=== PATIENT | male | born 1970 | race Caucasian/White ===

== ENCOUNTER 2017-12-12 09:04 | Outpatient (REF) | payer OTHER, SELFPAY ==
[2017-12-12 13:20] LABS: ALT 60 U/L (12-78); AST 36 U/L (15-37); Albumin 3.6 g/dL (3.4-5.0); Alkaline Phosphatase 64 U/L (46-116); Anion Gap 5.6 mmol/L (3-11); BUN 21 mg/dL (7-18); Bilirubin, Total 0.3 mg/dL (0.2-1.0); CO2 30.4 mmol/L (21.0-32.0); CREATININE 1.17 mg/dL (0.70-1.30); Calcium 8.9 mg/dL (8.5-10.1); Chloride 104 mmol/L (98-107); Cholesterol 186 mg/dL (50-200); Glucose 100 mg/dL (70-100); HDL Cholesterol 36 mg/dL (40-60); LDL CHOLESTEROL 123 mg/dL (<100); Potassium 4.6 mmol/L (3.5-5.1); Sodium 140 mmol/L (136-145); Total Protein 7.3 g/dL (6.4-8.2); Triglyceride 193 mg/dL (30-150)
== END 2017-12-12 09:24 ==
LOC: NCHCN 09:04
PROVIDERS: PCP Nurse Practitioner Family; Visit Provider Nurse Practitioner
DX: E78.5 Hyperlipidemia, unspecified (principal); I25.10 Atherosclerotic heart disease of native coronary artery without angina pectoris; I10 Essential (primary) hypertension
CPT/HCPCS: 80053; 80061; 83721

== ENCOUNTER 2018-12-18 11:10 | Outpatient (REF) | payer OTHER, SELFPAY ==
[2018-12-18 13:31] LABS: ALT 55 U/L (16-63); AST 35 U/L (15-37); Alkaline Phosphatase 63 U/L (46-116); BUN 21 mg/dL (7-18); Bilirubin, Total 0.3 mg/dL (0.2-1.0); CREATININE 1.23 mg/dL (0.70-1.30); Calcium 9.2 mg/dL (8.5-10.1); Calculated LDL 99 mg/dL; Chloride 104 mmol/L (98-107); Cholesterol 160 mg/dL (50-200); Glucose 100 mg/dL (70-100); HDL Cholesterol 38 mg/dL (40-60); Potassium 4.4 mmol/L (3.5-5.1); Sodium 140 mmol/L (136-145); Total Protein 7.9 g/dL (6.4-8.2); Triglyceride 116 mg/dL (30-150)
== END 2018-12-18 11:30 ==
LOC: NCHCN 11:10
PROVIDERS: PCP Nurse Practitioner Family; Visit Provider Nurse Practitioner
DX: I10 Essential (primary) hypertension (principal); I25.10 Atherosclerotic heart disease of native coronary artery without angina pectoris; E78.5 Hyperlipidemia, unspecified
CPT/HCPCS: 80053; 80061

== ENCOUNTER 2019-03-18 11:50 | Emergency (ER) | payer OTHER, SELFPAY ==
[2019-03-18 11:55] VITALS: BP 140/68; PULSE 69; RESP 20; TEMP 36.7; O2SAT 96
[2019-03-18] MEDS: Balanced Salt Solution 15 ML BTL (12:05)
[2019-03-18] MEDS: Tetracaine 0.5% 4 ML BTL (12:05)
[2019-03-18] MEDS: Fluorescein STRIPS 100/BOX 1 MG (12:06)
--- NOTE | 2019-03-18 12:25 | W.ED.GENAD ---
Discharge Plan Disposition Patient Disposition: HOME Condition: Good Discharge Details Chief Complaint: EyeProblem Clinical Impression: Foreign body in eye, Corneal rust ring Primary Care Provider: Sara Azevedo ED Provider: Priscila West Home Meds and New Rx's Prescriptions: Continued aspirin [Adult Aspirin Regimen] 81 mg tablet,delayed release (DR/EC) 81 mg PO DAILY RF: 0 rosuvastatin 20 mg tablet 30 mg PO HS RF: 0 Discharge Instructions Instructions: Erythromycin (Into the eye), Eye Foreign Body (ED) Additional Instructions: Encourage water intake. Please apply the erythromycin ointment to the left eye 5 times daily as instructed by nursing staff. Please call [facility] tomorrow to schedule follow-up appointment as soon as possible. If you develop fever/chills, increased pain, change in your vision, discharge or other new/worsening symptom please seek care urgently once again. Referrals: [facility] [place] [facility] [Outside] Sara Azevedo [Primary Care Provider] - Discharge Data Discharge Date/Time-TO BE ENTERED AT DEPARTURE: 03/18/19 13:45 Medical Decision Making Patient is a pleasant 48-year-old male presenting to complain foreign body in the left eye. 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 However, he does not remember any single inciting incident. He denies any fevers or chills. No change in his vision. States that he has foreign body sensation is been quite irritating since then. Last dose tetanus updated last fall. No discharge from the eye. States he has done this before but does not routinely see an senior budget analyst. On exam, patient is resting comfortably. He does have a visible foreign body over the iris at the 2 o'clock position. anesthetized with tetracaine. Patient did have immediate improvement. This was able to be easily removed with an 18-gauge needle. An understanding of floor seen evaluating the slit-lamp. Rust ring remains. Contact engagement quality consultant physician for [facility], was unable to reach them. Have asked that he f/u with them tomorrow. Information will be faxed to their office and patient will call in the morning. Patient started on erythromycin ointment. He was given return precautions. All of his questions and concerns were addressed and he is in agreement this plan. After patient was discharged, spoke with Dr. Christiansen who will see patient tomorrow to help with rust ring treatment. HPI General Mode of arrival: ambulatory. Date/Time Provider Initiated Documentation: 03/18/19 12:25. Limitations to Documentation: no limitations. Information obtained by: patient and RN notes reviewed. History of Present Illness 48 year old M presents to the emergency department with the chief complaint of FB left eye, described as mild, with intensity rated at 1. Quality is described as other (FB sensation), and is localized to the eyes. Patient reports no radiation. Patient started experiencing this day(s) (3) and it has been constant. No relieving factors improve symptom(s), No exacerbating factors reported . Patient notes no other symptoms.. Patient did receive the following treatments prior to arrival, none Related Data Home Medications Medication Instructions Recorded Confirmed aspirin 81 mg tablet,delayed 81 mg PO DAILY 01/03/19 03/18/19 release rosuvastatin 20 mg tablet 30 mg PO HS tab 01/03/19 03/18/19 Allergies Allergy/AdvReac Type Severity Reaction Status Date / Time No Known Drug Allergies Allergy Verified 03/18/19 11:58 General Stated Complaint: EyeProblem CAN: 4 Review of Systems Constitutional Constitutional: Reports as per HPI, Denies chills, Denies fatigue, Denies fever(s) and Denies headache(s) Eyes Eyes: Reports as per HPI ENT Ears, Nose, Mouth, and Throat: Denies headache(s) Cardiovascular Cardiovascular: Reports as per HPI, Denies chest pain and Denies lightheadedness Respiratory Respiratory: Denies cough Integumentary/Breasts Skin/Breast: Reports as per HPI, Denies rash, Denies skin pain and Denies skin swelling Neurologic Neurologic: Denies headache(s) and Denies radicular pain Endocrine Endocrine: Denies fatigue [facility] Medical History BMI 38.0-38.9,adult (Acute) Coronary artery disease (Chronic) Hyperlipidemia (Acute) Hypertension (Chronic) Skin lesion of face (Acute) Surgical History History of surgical removal of skin lesion (Acute) Left side of face, Status post LASIK surgery (Acute) Right eye Social History Smoking/Tobacco Use Status: Never Alcohol Intake: current Alcohol Intake frequency: holidays/special occasions only Drug use: Never Substance use type: does not use Do you feel safe at home: Yes Do you feel safe in your relationship?: Yes Exam Const General: cooperative, healthy appearing, comfortable, no acute distress, well developed and well groomed Nutritional Appearance: average body habitus and well nourished Orientation: alert, awake and oriented x3 HENMT Head: normal to inspection, normocephalic and atraumatic Ears: hearing grossly normal bilaterally and external ears normal General nose exam: external nose normal and nares normal Face and sinus: normal facial exam and face symmetric Mouth: oral mucosae normal, lip normal and moist mucous membranes Eyes General: appearance normal, both eyes and all related structures Visual Sanchez: normal visual sanchez by confrontation Alignment and Position: alignment normal and position normal Periorbital: periorbital findings normal Eyelids: eyelids normal Cornea: corneas abnormal on the left foreign body metallic and with rust ring present and fluorescein used Pupils: PERRL, normal by confrontation and accommodation normal Eyes/upper lids images: 1. Area of foreign body Resp Effort & Inspection: normal respiratory effort, able to speak in complete sentences and no respiratory distress Skin General skin exam: no rashes or lesions noted Neuro General: alert, awake and oriented x3 Cranial Nerves: CN's II-XI intact bilaterally Cognition: normal cognition Speech: speech normal Gait: normal gait Psych Appearance: grossly normal and well kempt Mental Status: mental status grossly normal Speech and Movement: speech and movement normal Course Vital Signs Vital signs: Vital Signs Temperature 36.7 C 03/18/19 11:55 Pulse 69 03/18/19 11:55 Respiratory Rate 20 03/18/19 11:55 Blood Pressure 140/68 03/18/19 11:55 Pulse Oximetry 96 03/18/19 11:55 Temperature 36.7 C 03/18/19 11:55 Pulse 69 03/18/19 11:55 Respiratory Rate 20 03/18/19 11:55 Respiratory Effort Non-Labored 03/18/19 12:01 Blood Pressure 140/68 03/18/19 11:55 Blood Pressure Position Sitting 02/02/20 11:55 Pulse Oximetry 96 03/18/19 11:55 Oxygen Delivery Method Room Air 03/18/19 11:55 Oxygen Flow Rate 0 03/18/19 11:55 Pain Level 1 03/18/19 11:55
[2019-03-18] MEDS: Erythromycin Ophth Oint 3.5 GM TUBE OS (13:46)
--- NOTE | 2019-03-18 14:27 | NUR.NOTE ---
Referral and visit note faxed to [facility], [phone].Nursing Note:
== END 2019-03-18 13:45 | disposition home or self-care (01) ==
PROVIDERS: Emergency Provider Physician Assistant; PCP Nurse Practitioner Family
DX: T15.02XA Foreign body in cornea, left eye, initial encounter (principal)
CPT/HCPCS: 65222

== ENCOUNTER 2019-12-17 19:36 | Outpatient (REF) | payer OTHER, SELFPAY ==
[2019-12-17 18:59] LABS: ALT 52 U/L (16-63); AST 30 U/L (15-37); Albumin 4.1 g/dL (3.4-5.0); Alkaline Phosphatase 66 U/L (46-116); Anion Gap 5.9 mmol/L (3-11); BUN 18 mg/dL (7-18); Bilirubin, Total 0.4 mg/dL (0.2-1.0); CO2 30.1 mmol/L (21.0-32.0); CREATININE 1.28 mg/dL (0.70-1.30); Calcium 8.9 mg/dL (8.5-10.1); Calculated LDL 98 mg/dL (<100); Chloride 101 mmol/L (98-107); Cholesterol 162 mg/dL (<200); Estimated GFR 59.25 (mL/min/1.73m2); Glucose 95 mg/dL (74-106); HDL Cholesterol 32 mg/dL (40-60); Potassium 4.5 mmol/L (3.5-5.1); Sodium 137 mmol/L (136-145); Triglyceride 161 mg/dL (<150)
== END 2019-12-17 19:56 ==
LOC: NCHCN 19:36
PROVIDERS: PCP Nurse Practitioner Family; Visit Provider Nurse Practitioner
DX: I10 Essential (primary) hypertension (principal); I25.10 Atherosclerotic heart disease of native coronary artery without angina pectoris; E78.5 Hyperlipidemia, unspecified
CPT/HCPCS: 80053; 80061

== ENCOUNTER 2021-01-14 10:31 | Outpatient (REF) | payer OTHER, SELFPAY ==
[2021-01-14 20:58] LABS: ALT 56 U/L (16-63); AST 40 U/L (15-37); Albumin 4.1 g/dL (3.4-5.0); Alkaline Phosphatase 65 U/L (46-116); Anion Gap 10.5 mmol/L (3-11); BUN 22 mg/dL (7-18); Bilirubin, Total 0.3 mg/dL (0.2-1.0); CO2 24.5 mmol/L (21.0-32.0); CREATININE 1.3 mg/dL (0.70-1.30); Calcium 8.9 mg/dL (8.5-10.1); Calculated LDL 109 mg/dL (<100); Chloride 103 mmol/L (98-107); Cholesterol 172 mg/dL (<200); Estimated GFR 57.97 (mL/min/1.73m2); Glucose 93 mg/dL (74-106); HDL Cholesterol 37 mg/dL (40-60); Potassium 4.6 mmol/L (3.5-5.1); Sodium 138 mmol/L (136-145); Total Protein 7.8 g/dL (6.4-8.2); Triglyceride 131 mg/dL (<150)
== END 2021-01-14 10:32 | disposition home or self-care (01) ==
LOC: NCHCN 10:31
PROVIDERS: PCP Nurse Practitioner Family; Visit Provider Nurse Practitioner
DX: I10 Essential (primary) hypertension (principal); E78.5 Hyperlipidemia, unspecified; I25.10 Atherosclerotic heart disease of native coronary artery without angina pectoris
CPT/HCPCS: 80053; 80061

== ENCOUNTER 2021-12-10 15:10 | Outpatient (REF) | payer OTHER, SELFPAY ==
[2021-12-10 14:52] LABS: Abs Immature Grans 0.01 10^3/uL (0.0-0.06); Absolute Basophil Count 0.04 10^3/uL (0.0-0.2); Absolute Eosinophil Count 0.13 10^3/uL (0.0-0.7); Absolute Lymphocyte Count 1.78 10^3/uL (1.2-3.4); Absolute Monocyte Count 0.55 10^3/uL (0.1-0.8); Absolute Neutrophil Count 2.15 10^3/uL (1.2-6.7); Basophils % 0.9; Eosinophils % 2.8; HCT 45.9 % (40.0-50.0); HGB 15.6 g/dL (13.5-17.5); Immature Grans % 0.2; Lymphocytes % 38.2; MCH 31.4 pg (27.0-33.0); MCV 92 fL (80-95); MPV 10.4 fL (8.0-11.0); Monocytes % 11.8; Neutrophils % 46.1; Platelet Count 216 10^3/uL (130-400); RBC 4.97 10^6/uL (4.36-5.78); RDW 11.5 % (11.8-14.1); RDW-SD 38.9 fL; WBC 4.66 10^3/uL (4.4-10.8)
[2021-12-10 15:18] LABS: ALT 43 U/L (16-63); AST 32 U/L (15-37); Albumin 3.8 g/dL (3.4-5.0); Alkaline Phosphatase 59 U/L (46-116); Anion Gap 5.3 mmol/L (3-11); BUN 21 mg/dL (7-18); Bilirubin, Total 0.3 mg/dL (0.2-1.0); CO2 26.7 mmol/L (21.0-32.0); CREATININE 1.1 mg/dL (0.70-1.30); Calculated LDL 154 mg/dL (<100); Chloride 104 mmol/L (98-107); Cholesterol 221 mg/dL (<200); Estimated GFR 80.27 (mL/min/1.73m2); Glucose 94 mg/dL (74-106); HDL Cholesterol 38 mg/dL (40-60); Potassium 4.4 mmol/L (3.5-5.1); Sodium 136 mmol/L (136-145); Total Protein 8.1 g/dL (6.4-8.2); Triglyceride 146 mg/dL (<150)
== END 2021-12-10 15:11 | disposition home or self-care (01) ==
LOC: NCHCN 15:10
PROVIDERS: PCP Nurse Practitioner Family; Visit Provider Nurse Practitioner Family
DX: E78.5 Hyperlipidemia, unspecified (principal); I25.10 Atherosclerotic heart disease of native coronary artery without angina pectoris; N13.0 Hydronephrosis with ureteropelvic junction obstruction; E66.8 Other obesity; I10 Essential (primary) hypertension
CPT/HCPCS: 80053; 80061; 85025

== ENCOUNTER 2022-06-08 16:48 | Outpatient (REF) | payer OTHER, SELFPAY ==
[2022-06-08 16:21] LABS: ALT 52 U/L (16-63); AST 35 U/L (15-37); Albumin 3.8 g/dL (3.4-5.0); Alkaline Phosphatase 58 U/L (46-116); BUN 23 mg/dL (7-18); Bilirubin, Total 0.3 mg/dL (0.2-1.0); CREATININE 1.3 mg/dL (0.70-1.30); Calcium 8.8 mg/dL (8.5-10.1); Calculated LDL 101 mg/dL (<100); Chloride 105 mmol/L (98-107); Cholesterol 161 mg/dL (<200); Estimated GFR 65.69 (mL/min/1.73m2); Glucose 104 mg/dL (74-106); HDL Cholesterol 37 mg/dL (40-60); Potassium 4.7 mmol/L (3.5-5.1); Sodium 138 mmol/L (136-145); Total Protein 8.1 g/dL (6.4-8.2); Triglyceride 116 mg/dL (<150)
[2022-06-10 09:27] LABS: Hepatitis C Ab w Rflx HCV PCR Negative (Negative)
[2022-06-10 09:45] LABS: HIV-1/2 Ag & Ab Screen Negative (Negative)
== END 2022-06-08 16:49 | disposition home or self-care (01) ==
LOC: NCHCN 16:48
PROVIDERS: PCP Nurse Practitioner Family; Visit Provider Nurse Practitioner Family
DX: E78.5 Hyperlipidemia, unspecified (principal); Z11.4 Encounter for screening for human immunodeficiency virus [HIV]; Z11.59 Encounter for screening for other viral diseases
CPT/HCPCS: 80053; 80061; 86803; 87389

== ENCOUNTER 2022-10-01 07:57 | Day surgery (SDC) | payer OTHER, SELFPAY ==
--- NOTE | 2022-09-30 21:24 | W.COLOREPORT ---
Date of service: 10/01/22 Time of Service: 09:49 Colonoscopy Report Date of procedure: 10/01/22 Pre-op diagnosis general: CRC screening/change in bowel habits Post-op diagnosis procedure note: other (polyps) Surgeon: Sunitha Burleson Anesthesia Type: General LMA/ETT Estimated blood loss (mL): 2 Pathology: other Complications: None Disposition: same day Prep: Miralax/Dulcolax Retraction Time: 14 Procedure Description: After informed consent was obtained the patient was taken to the procedure room and placed in a left decubitous position. Monitors were applied and a time out was done. The patients name, date of , procedure, allergies to medications and metal in their body was reviewed. The patient was then sedated. Once sedated and comfortable a rectal exam was done. External exam was normal. Internal exam revealed a normal sphincter tone and no palpable masses. The prostate normal The scope was then introduced and retrofelexed. No internal hemorrhoids were identified. The scope was then advanced to the cecum w/out difficulty. The TI and appendiceal orifice were identified. The prep was BBPS II in all segments for a total of 6. The scope was then slowly retracted over 14 minutes back into the rectum. He had a flat 0.75 cm polyp at 70 cm that is removed removed with a cold biting forcep. He had a second polyp at 30 cm that is a flat 5 mm polyp that was removed with cold biting forcep. All specimen is retrieved and no bleeding was noted. biopsies are taken at 70/50/30 centimeters and rectum. The scope was removed and the patient was woken up and taken back to Same day surgery in stable condition. The patient tolerated the procedure well and there were no immediate complications. Follow up: The patient should follow up for repeat colonoscopy pending pathology results, years unless they develop changes in bowel habits or other new gastrointestinal complaints.
--- NOTE | 2022-09-30 21:25 | PDOC.DSDIS_ITS ---
Date of service: 10/01/22 Time of Service: 09:52 Discharge Plan Disposition Patient Disposition: Home Discharge Details Reason For Visit: colon scope Attending Provider: Suntiha Burleson Primary Care Provider: Sara Azevedo Home Meds and New Rx's Prescriptions: Continued aspirin [Adult Aspirin Regimen] 81 mg tablet,delayed release (DR/EC) 81 mg PO DAILY rosuvastatin 20 mg tablet 20 mg PO HS isosorbide dinitrate 30 mg tablet 30 mg PO DAILY Rx Instructions: allow nitrate-free interval of 12-14 hrs per 24-hr period Discontinued polyethylene glycol 3350 17 gram/dose powder 17 g PO ONCE Qty: 238 0RF Rx Instructions: Take per colonoscopy instructions provided by ordering providers office bisacodyl [Dulcolax (bisacodyl)] 5 mg tablet,delayed release (DR/EC) 5 mg PO ONCE Qty: 4 0RF Rx Instructions: Take per colonoscopy instructions provided by ordering providers office Discharge Instructions Additional Instructions: DSU Colonoscopy Post- Op Instructions Instructions for Everyone who is given Anesthesia: For your safety, please do the following for the next twenty-four (24) hours: *Do Not operate a motor vehicle (car, truck, motorcycle, etc.) *Do Not drink alcoholic beverages or use any recreational drugs for the first 24 hours or while taking pain medications. The medications in your body may have a reaction that can be dangerous. *Do Not make any important decisions or sign any important papers. Findings: polyps x3 No ASA/NSAIDs for 72 hrs Follow up:repeat scope in 5 yrs time My office will send a letter in 2 to 3 weeks time with the results of the biopsies You do have signs of sleep apnea that was noted during procedure. It is highly recommended you follow-up with your primary doctor and have a sleep study done 1. No lifting over 20 pounds or strenuous activity for the first 24 hours after your procedure. After 24 hours there are no restrictions on your activity but you may feel fatigued for a few days. 2. After you arrive home you may have a light meal and return to your normal diet as you can tolerate it without feeling sick to your stomach. 3. You may have a bloated, gaseous feeling in your belly (abdomen) after a colonoscopy. Passing gas and belching will help. Walking or lying down on your left side with your knees flexed may relieve the discomfort. Call the office at [phone] (Office) or [phone] (Hospital) right away if you notice any of the following: a.Vomiting of blood or ?coffee ground stools?. b.Rectal bleeding 1Tbsp, blood clots or continuous bleeding. c.Severe belly (abdominal) pain. d.A hard distended belly (abdomen) and an inability to pass gas. 4. Please don?t expect to have a normal BM (bowel movement) for 2-3 days after your procedure. 5. If there are questions regarding the findings of your procedure, please contact your doctor 6. If you are unable to contact your doctor with a problem, contact the hospital at [phone]. 7. Continue all your regular medications unless directed otherwise. I understand the above instructions and have no questions. Signature of Patient or Adult Escort Name of Responsible Adult Escort Signature of Nurse Date/Time Activity:: see above Diet:: see abve Discharge Orders Discharge Orders: Discharge Order (Routine); Ordered 10/01/22 Ordered By: Sunitha Burleson DS: Diagnosis Discharge Diagnosis (1) BMI 38.0-38.9,adult: (2) Coronary artery disease: (3) Hx of myocardial infarction: (4) Hyperlipidemia: (5) Hypertension: (6) Ischemic heart disease: (7) Screening for malignant neoplasm of colon performed: Status: Acute Asessment and Plan: The patient is seen and examined after their colonoscopy.? The patient has been able to pass gas.? They are not having abdominal pain.? They have been able to tolerate liquids and a snack.? They do not have any nausea or vomiting.? They are not having any chest pain or shortness of breath.They are not having any rectal bleeding. Their vital signs have been stable-see nursing notes. ? We discussed findings during their colonoscopy, and any biopsies that were done/polyps that were removed. The patient will be sent a letter with any biopsy results, and when to repeat the colonoscopy.-see discharge instructions. ? Patient was given explicit instructions to follow-up regarding colonoscopy-refer to discharge instructions.? We reviewed resumption of medications. Patient verbalized understanding and discharged in stable and satisfactory condition- See nursing notes. (8) Adenomatous polyps: Status: Acute
[2022-10-01 08:09] VITALS: BP 152/93; PULSE 62; RESP 17; TEMP 36.4; O2SAT 95
[2022-10-01] MEDS: Lactated Ringers 1,000 ML 80 ML IV (08:28)
--- NOTE | 2022-10-01 08:58 | ANES.PREOP_ITS ---
General Info Date of Service Date Performed: 10/01/22 Height: 5 ft 8 in Weight: 117.4 kg Body Mass Index (BMI): 39.3 Surgical Procedure: Operation Date: 10/01/22 09:05 Proposed Procedure Side Surgeon p Colonoscopy Sunitha Burleson DO Actual Procedure Side Surgeon p Colonoscopy Not Applicable Sunitha Burleson DO Pre-Op Diagnosis Post-Op Diagnosis SCREENING SCREENING Meds Allergies and Home Medications Allergies Allergy/AdvReac Type Severity Reaction Status Date / Time No Known Drug Allergies Allergy Verified 10/01/22 08:17 Home Medication Medication Instructions Recorded aspirin 81 mg tablet,delayed 81 mg PO DAILY 01/03/19 release (Adult Aspirin Regimen) isosorbide dinitrate 30 mg tablet 30 mg PO DAILY 12/24/19 rosuvastatin 20 mg tablet 20 mg PO HS 09/16/22 Current Visit Medications: Current Medications Generic Name Dose Route Start Last Admin Trade Name Freq PRN Reason Stop Dose Admin Hyoscyamine Sulfate 0.125 mg 10/01/22 08:16 Hyoscyamine 0.125 Mg Sl/Oral/Chew SL 10/31/22 08:15 DIRECTED PRN Ringer's Solution 1,000 mls @ 80 mls/hr 10/01/22 06:00 10/01/22 08:28 IV 10/01/22 23:59 80 mls/hr INFUSION TONI Administration IV Miscellaneous Supplies 1 each 10/01/22 06:00 Iv Access IV 10/01/22 23:59 DIRECTED TONI Ondansetron HCl 4 mg 10/01/22 08:16 Ondansetron 4 Mg/2 Ml Vial IVP 10/31/22 08:15 Q4H PRN PRN Nausea / Vomiting Sodium Chloride 0 ml 10/01/22 06:00 Normal Saline Flush 10 Ml Syr IV 10/01/22 23:59 PRN PRN Sodium Chloride 0 ml 10/01/22 06:00 Normal Saline 10 Ml Vial IJ 10/01/22 23:59 DIRECTED PRN Sterile Water 0 ml 10/01/22 06:00 Water,Injection,Sterile 10 Ml Vial IJ 10/01/22 23:59 DIRECTED PRN PFSH Active Problems Active Problems: Problem Status Onset Code Neoplasm of unspecified behavior of bone, soft tissue, and skin D49.2 History of surgical removal of skin lesion Z98.890, Z87.2 Status post LASIK surgery Z98.890 Foreign body in eye T15.90XA Corneal rust ring H18.899 Screening for malignant neoplasm of colon performed Z12.11 Medical History Medical History (Updated 10/01/22 @ 08:16 by Ilene Winslow, RN) BMI 38.0-38.9,adult Coronary artery disease Hx of myocardial infarction 2006 Hyperlipidemia Hypertension Ischemic heart disease Surgical History Surgical History History of heart artery stent 03/06/13-per pt. f/u with Dr. Bustos annually at [facility] Tobacco Smoking/Tobacco Use Status: Never Alcohol Alcohol Intake: current Alcohol intake frequency: holidays/special occasions only Substance Use Substance use: Never Substance use type: does not use Vital Signs and Lab Results Vital Signs Most Recent Vital Signs in EMR: Most Recent Vital Signs Temp Pulse Resp BP Pulse Ox 36.4 C L 62 17 152/93 H 95 10/01/22 08:09 10/01/22 08:09 10/01/22 08:09 10/01/22 08:09 10/01/22 08:09 Lab Results Blood Type / Crossmatch: No Data to Display Complete Blood Count: No Data to Display Complete Metabolic Panel: No Data to Display Liver Function Panel: No Data to Display Coagulation Panel: No Data to Display Cardiac Panel: No Data to Display Arterial Blood Gas: No Data to Display Venous Blood Gas: No Data to Display Pancreas Panel: No Data to Display Thyroid Panel: No Data to Display Infectious Disease: No Data to Display Blood Cultures: No Data to Display Toxicology Panel: No Data to Display Anesthesia Assessment and Plan Anesthesia History Personal History: No History of Anesthesia Complications Family History: No Family History of Anesthesia Complications Exercise Tolerance Exercise Tolerance: Metabolic Equivalents>4 Pertinent Negatives Pertinent Negatives: No Symptoms of GERD Cardiac & Pulmonary Exam Cardiac Exam: Normal S1/S2 Heart Sounds Pulmonary Exam: Clear Bilateral Breath Sounds Implantable Cardiac Device Does patient have a Pacemaker or an ICD?: No Airway Exam Known Difficult Airway: No Mallampati Class: 3 Mouth Opening: Normal (> 3cm) Thyromental Distance: Greater than 3 cm Neck Range of Motion: Full ROM Neck Circumference: Normal Teeth Condition: Normal Dentition ASA Classification ASA Score: ASA 2 Emergency Case?: No NPO Status NPO Status: NPO Clears >2 hours, Solids >8 hours Anesthesia Plan Resuscitation Status: Full Code Anesthesia Technique: General Anesthesia Airway Planned: Natural Airway Monitors Used: Standard Monitors
[2022-10-01 08:59] VITALS: BMI 39.3
--- NOTE | 2022-10-01 09:27 | BOWEL_PTH ---
PATIENT: Teodoro Lizarraga JR LOC: [facility] U#:[id number] AGE/SX: 52/M ROOM: RE10/01/[address]: Sunitha Burleson : 1970 BED: DIS: 10/01/2022 SPEC #: [id number] RECD: 10/01/22 17:48 STATUS: YORDY REMerrick #: [id number] JERRY: 10/01/22 09:[address]: Sunitha Burleson DEPT: Surgical Specimen RECD BY: Paloma Marrero ENTERED: 10/01/22 17:52 SP TYPE: Bowel OTHR DR: Sara Azevedo Tissues: 1 - BIOPSY BOWEL 2 - BIOPSY BOWEL 3 - BIOPSY BOWEL 4 - BIOPSY BOWEL 5 - BIOPSY BOWEL Procedures: GROSS AND MICRO LEVEL 4 Comments: [id number]
[2022-10-01 09:45] VITALS: BP 107/75; PULSE 78; RESP 22; TEMP 36.2; O2SAT 94
[2022-10-01 09:56] VITALS: BP 106/74; PULSE 65; RESP 20; TEMP 36.3; O2SAT 93
--- NOTE | 2022-10-01 10:02 | W.ANESPOSTOP ---
Postoperative Evaluation Date, Time and Location Date Performed: 10/01/22 Time Performed: 10:03 Patient Location: Day Surgery Unit Vital Signs Most Recent Imported Vital Signs: Most Recent Vital Signs Temp Pulse Resp BP Pulse Ox 36.3 C L 65 20 106/74 93 10/01/22 09:56 10/01/22 09:56 10/01/22 09:56 10/01/22 09:56 10/01/22 09:56 Pain Score Most Recent Pain Score: Most Recent Pain Score Pain Level 0 10/01/22 08:09 Assessment Mental Status: Arousable with meaningful communication Airway and Respiratory Function: Patent airway with normal (patient baseline) respiratory exam Cardiovascular Function: Hemodynamically Stable Hydration Status: Adequately Hydrated Nausea & Vomiting: No Nausea or Vomiting Pain: Pt. Denies Any Pain Peripheral Nerve Block: Patient did not receive a nerve block
[2022-10-01 10:25] VITALS: BP 127/78; PULSE 66; RESP 18; TEMP 36.2; O2SAT 96
== END 2022-10-01 11:15 | disposition home or self-care (01) ==
PROVIDERS: PCP Nurse Practitioner Family; Visit Provider Surgery
PROC: 0DJD8ZZ Inspection of Lower Intestinal Tract, Via Natural or Artificial Opening Endoscopic (ICD-10-PCS; CPT 45378; principal; 2022-10-01 09:00)
DX: Z12.11 Encounter for screening for malignant neoplasm of colon; R19.4 Change in bowel habit; D12.5 Benign neoplasm of sigmoid colon; D12.4 Benign neoplasm of descending colon; K62.89 Other specified diseases of anus and rectum
CPT/HCPCS: 45380; 88305; J2001; J2704

== ENCOUNTER 2024-02-16 16:37 | Outpatient (REF) | payer MEDICAID, SELFPAY ==
[2024-02-16 16:14] LABS: ALT 50 U/L (16-63); AST 44 U/L (15-37); Albumin 3.9 g/dL (3.4-5.0); Alkaline Phosphatase 68 U/L (46-116); Anion Gap 10.5 mmol/L (3-11); BUN 26 mg/dL (7-18); Bilirubin, Total 0.41 mg/dL (0.2-1.0); CREATININE 1.3 mg/dL (0.70-1.30); Calculated LDL 136 mg/dL (<100); Chloride 105 mmol/L (98-107); Cholesterol 207 mg/dL (<200); Estimated GFR 64.88 (mL/min/1.73m2); Glucose 104 mg/dL (74-106); HDL Cholesterol 42 mg/dL (40-60); Potassium 4.7 mmol/L (3.5-5.1); Sodium 141 mmol/L (136-145); Total Protein 7.8 g/dL (6.4-8.2); Triglyceride 148 mg/dL (<150)
[2024-02-16 16:55] LABS: CO2 22.4 mmol/L (21.0-32.0)
[2024-02-16 22:58] LABS: PSA, Screening 0.1 ng/mL (<=3.5)
== END 2024-02-16 16:38 | disposition home or self-care (01) ==
LOC: NCHCN 16:37
PROVIDERS: Visit Provider Nurse Practitioner Family
DX: Z00.00 Encounter for general adult medical examination without abnormal findings (principal)
CPT/HCPCS: 80053; 80061; 84153